=== PATIENT | male | born 1930 | race Caucasian/White ===

== ENCOUNTER 2017-08-11 12:35 | Outpatient (CLI) | payer MEDICARE, OTHER ==
--- NOTE | 2017-08-11 15:13 | MRI ---
BRAIN MRI WITHOUT CONTRAST: HISTORY: Short-term memory issues x3 years. COMPARISON: None. TECHNIQUE: A brain MRI is performed without intravenous Gadolinium administration. Multisequential, multiplanar imaging is performed. FINDINGS: No hemorrhage on the axial gradient echo sequence. There are malacic and gliotic changes involving the medial left frontal lobe. The remainder of the c erebrum demonstrates preservation of cortical kruger white matter differentiation. T2 and FLAIR white matter hyperintensities due to chronic small vessel ischemic changes are identified. The central arterial flow voids are maintained. Absent restricted diffusion. The calvarium has a normal T1 marrow signal intensity. the midline brain parenchymal structures are unremarkable. IMPRESSION: 1. No acute intracranial process. 2. Atrophy. 3. Chronic small vessel ischemic changes of the white matter. POS: [facility]
== END 2017-08-11 12:36 | disposition home or self-care (01) ==
LOC: TBSIIMAG 12:35
PROVIDERS: ATTEND Psychiatry & Neurology Neurology
DX: R41.89 Other symptoms and signs involving cognitive functions and awareness (principal); G31.9 Degenerative disease of nervous system, unspecified
CPT/HCPCS: 70551